=== PATIENT | male | born 2000 | race Hispanic/Latino ===

== ENCOUNTER 2022-11-08 21:47 | Emergency (ER) | payer SELFPAY ==
[2022-11-08] MEDS ORDERED: Lidocaine 1% w/Epinephrine 1:200K 30 ML VIAL ONE (22:25)
[2022-11-08] MEDS ORDERED: Boostrix 0.5 ML (Tdap) VIAL (>/=7 yrs of age) ONE (23:05)
[2022-11-08] MEDS ORDERED: Bacitracin 1 PK ONE (23:13)
== END 2022-11-08 23:15 | disposition home or self-care (01) ==
LOC: CSHERS 21:47
DX: S50.852A Superficial foreign body of left forearm, initial encounter (principal); W10.9XXA Fall (on) (from) unspecified stairs and steps, initial encounter; Z23 Encounter for immunization
CPT/HCPCS: 90471; 90715; 99283